=== PATIENT | male | born 1965 | race Caucasian/White ===

== ENCOUNTER → 2017-09-18 | Outpatient (CLI) | payer OTHER ==
--- NOTE | 2017-10-01 00:04 | ONC ---
[place] [address] RADIATION ONCOLOGY NOTE Name: FINN ZAMUDIO Room: [facility]#: [id number] Admission: 09/18/17 Attend Phys: Silviano Naidu MD Discharge: Date of : 61 Report #: [id number] THIS REPORT FOR: //name// CC: Silviano Terrazas DATE OF SERVICE: 09/18/2017 RADIATION ONCOLOGY FOLLOWUP NOTE REFERRING PHYSICIANS: Matt Brown MD; Dr. Suarez; Dr. Hendrix; Dr. Miller as well as iSlviano Orlando MD.; Dr. Anderson Smith, Urology and also Dr. Terrazas. [facility] phone is [phone]. 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 Radiation treatments were completed on 02/07/2016. He also was receiving octreotide from his medical oncologist earlier in 2016. INTERVAL NOTE: The patient indicated that his chromogranin A value may have been falsely elevated because of the amount of antihistamines he had been using. He said that he was having side effects from the octreotide, so it was discontinued. His chromogranin A went from 32 on 06/20/2017 to 242 on 07/22/2017, but then it dropped to 145 on 09/17/2017. Overall, the patient felt like his energy level was improving. He feels reasonably well. The nonproductive cough that he had has decreased in intensity and in frequency. MEDICATIONS: Include amlodipine, carvedilol, aspirin, pantoprazole and 175 mcg of levothyroxine per day. SOCIAL HISTORY: The patient quit smoking around 05/2016. He smoked about a pack a day since about 1984. REVIEW OF SYSTEMS: RESPIRATORY: Breathing was stable. He was not short of breath. GASTROINTESTINAL: He feels like he has a good appetite, though he has had some recent weight loss. PHYSICAL EXAMINATION: VITAL SIGNS: The patient weighed 269.8 pounds [place] [address] RADIATION ONCOLOGY NOTE Name: FINN ZAMUDIO Room: [facility]#: [id number] Admission: 09/18/17 Attend Phys: Silviano Naidu MD Discharge: Date of : 61 Report #: [id number] 09/18/2017. He was 275 pounds on 06/24/2017. On 09/18/2017, blood pressure was 122/84, pulse 66 and respirations 22. LYMPH NODES: He had no palpable cervical or supraclavicular lymphadenopathy. HEART: Had a regular rate and rhythm without murmur. LUNGS: were clear to auscultation. ABDOMEN: Not tender. Spleen was not palpable. Liver was at the costal margin. LABORATORY DATA: From 08/20/2017, hemoglobin was 15.3; platelets 322,000 and white blood cell count 12.5. Sodium 139 and potassium 4.5. BUN 10 and creatinine 0.95. On 09/17/2017, free T4 was 0.7. TSH was still elevated at 12.006 on his present dose of 175 mcg of levothyroxine per day. RADIOLOGIC DATA: From 08/20/2017, there is no evidence of somatostatin receptor positive lesion. Prior right lower lobectomy with ill-defined uptake in the right perihilar area, which is likely post therapeutic. ASSESSMENT AND PLAN: 1. History of atypical carcinoid- There is no clear evidence of atypical carcinoid at this time. The patient is scheduled for additional lab work by his medical oncologist, Dr. Brown on 11/11/2017. He is scheduled to see Dr. Brown on 11/20/2017. He is also seeing his head pumper, Dr. Suarez, on 09/25/2017 and he was asked to schedule a follow up appointment to see me in about 3 months. 2. Hypothyroidism- The patient's TSH was still elevated with him taking 175 mcg of levothyroxine per day. He was given a prescription for 200 mcg of levothyroxine per day and a TSH was ordered in about 3 months and the patient was asked to schedule a follow up appointment to see me afterwards. 3. 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 Smith on 02/17/2018. 4. Aortic ectasia- He follows up with his fly maker, Dr. Miller with regards to his aortic ectasia. The diameter of the asceding aortic ectasia was 4.7 cm on his most recent ct. 5. Insomnia. The patient was given a refill for Restoril for insomnia. Thank you for allowing me to participate in the care of this patient. <ELECTRONICALLY SIGNED> By: Silviano Naidu MD 10/01/17 0004 1227 [id number] Naidu MD /nt
== END ==
LOC: M.RTH 02:42
DX: Z08 Encounter for follow-up examination after completed treatment for malignant neoplasm (principal); I77.819 Aortic ectasia, unspecified site; E03.9 Hypothyroidism, unspecified; G47.00 Insomnia, unspecified; Z87.891 Personal history of nicotine dependence; Z85.118 Personal history of other malignant neoplasm of bronchus and lung; Z85.528 Personal history of other malignant neoplasm of kidney

== ENCOUNTER → 2017-12-18 | Outpatient (CLI) | payer OTHER ==
--- NOTE | 2017-12-29 22:26 | ONC ---
[address] [address] RADIATION ONCOLOGY NOTE Name: FINN ZAMUDIO Room: [facility]#: [id number] Admission: 12/18/17 Attend Phys: Silviano Naidu MD Discharge: Date of : 61 Report #: [id number] THIS REPORT FOR: //name// CC: Silviano Brown MD DATE OF SERVICE: 12/18/2017 REFERRING PHYSICIANS: Dr. Rickey Brown, Dr. Ashlyn Hendrix, Dr. Smith, Dr. Suarez from Pulmonology, Dr. Orlando from Gastroenterology, Dr. Miller from Cardiology, Dr. Doran from Palliative Care. [facility] phone is [phone]. PRIMARY SITE AND HISTOPATHOLOGY: The patient received chemoradiotherapy for a recurrent atypical carcinoid that involved the lung and mediastinal area. Radiation treatments were completed on 02/07/2016. He also was receiving octreotide from his medical oncologist for a part of 2017. INTERVAL NOTE: The patient's main complaint is that he has back pain radiating to his left rib. MEDICATIONS: Include amlodipine, carvedilol, aspirin, pantoprazole and 200 mcg of levothyroxine per day. SOCIAL HISTORY: The patient quit smoking around 05/2016; he smoked about a pack a day since about 1984. REVIEW OF SYSTEMS: RESPIRATORY: Breathing was stable. He was not short of breath. GASTROINTESTINAL: He has a good appetite and is eating a regular diet. PHYSICAL EXAMINATION: VITAL SIGNS: The patient weighed 281.6 pounds on 12/18/2017 and 269.8 pounds on 09/18/2017. On 12/18/2017, blood pressure was 124/100, pulse 96, respirations 20, oxygen saturation 96%. LYMPH NODES: He had no palpable cervical or supraclavicular lymphadenopathy. HEART: Had a regular rate and rhythm without murmur. LUNGS: were clear to auscultation. ABDOMEN: Not tender. Spleen was not palpable. Liver [place] [address] RADIATION ONCOLOGY NOTE Name: FINN ZAMUDIO Room: [facility]#: [id number] Admission: 12/18/17 Attend Phys: Silviano Naidu MD Discharge: Date of : 61 Report #: [id number] LABORATORY DATA: From 12/10/2017, hemoglobin 17, platelets were 258,000 and white blood cell count was 10.6. Sodium was 139, potassium was 4.0, BUN was 20, creatinine was 1.17, AST 17, ALT 60. His TSH has been improving and now is still elevated at 6.34 with him taking 200 mcg of levothyroxine per day. It was at 12 on 09/17/2017. His chromogranin A is 98 with normal being 93 and that was higher in the past, it was 218 on 10/14/2017, so that could have been a response to his octreotide treatments. RADIOLOGIC DATA: The patient had a chest CT on 11/19/2017, which showed no thoracic metastatic disease. There was unchanged right perihilar fibrosis and he also had aortic ectasia, which was unchanged. The patient had a neck CT on 12/10/2018, which showed no abnormal cervical mass or lymphadenopathy. ASSESSMENT AND PLAN: 1. History of atypical carcinoid- There is no clear evidence of atypical carcinoid at this time. He has an appointment with his medical oncologist, Dr. Brown, on 03/25/2018. A thoracic spine MRI was ordered and the patient was asked to schedule a follow up appointment with me after the thoracic spine MRI was completed. 2. Back pain- He does have tenderness over the left lower rib and thoracic spine area. So, a thoracic spine MRI will be ordered and the patient will be asked to schedule a followup appointment to see me afterwards. He already was referred to Palliative Care. This could be arthritic changes that are causing this pain versus possible bone metastasis. 3. Hypothyroidism- The patient's TSH is still elevated, but is slowly going back to normal, so his levothyroxine will be increased from 200 mcg per day to 225 mcg per day, and he was asked to follow up with me after his thoracic spine MRI. 4. History of oncocytoma after partial nephrectomy- The patient has an appointment with his urologist, Dr. Smith, on 02/17/2018 to follow up with regards to this issue. 5. Aortic ectasia- The patient follows up with his explosive technician, Dr. Miller, with regards to this issue. [address] [address] RADIATION ONCOLOGY NOTE Name: FINN ZAMUDIO Room: [facility]#: [id number] Admission: 12/18/17 Attend Phys: Silviano Naidu MD Discharge: Date of : 61 Report #: [id number] Thank you for allowing me to participate in the care of this patient. <ELECTRONICALLY SIGNED> By: Silviano Naidu MD 12/29/17 2226 1228 [id number] Naidu MD /nt
== END ==
LOC: M.RTH 02:28
DX: E03.9 Hypothyroidism, unspecified (principal); I77.819 Aortic ectasia, unspecified site; M54.9 Dorsalgia, unspecified

== ENCOUNTER → 2017-12-20 | Outpatient (CLI) | payer OTHER | LOC: M.MRI 16:36 | DX: M43.8X4 Other specified deforming dorsopathies, thoracic region (principal) ==

== ENCOUNTER → 2018-04-18 | Outpatient (CLI) | payer OTHER ==
[2018-04-18 10:37] LABS: ABSOLUTE EOSINOPHILS 0.3 thou/uL (0.0-0.7); ABSOLUTE LYMPHOCYTES 1.1 thou/uL (0.8-5.3); ABSOLUTE MONOCYTES 0.6 thou/uL (0.0-1.2); ABSOLUTE NEUTROPHILS 6.8 thou/uL (1.6-8.1); BASOPHILS 0.4 %; EOSINOPHILS 3.5 %; HEMATOCRIT 45.9 % (42.0-52.0); HEMOGLOBIN 15.3 gm/dL (14.0-18.0); LYMPHOCYTES 12.4 %; MCH 31.3 pg (26.0-34.0); MCHC 33.3 g/dL (28.0-37.0); MONOCYTES 6.9 %; MPV 8.7 fl. (7.2-11.1); NUCLEATED RBCS 0 /100WBC; PLATELET COUNT* 221 thou/uL (150-400); POLYS 76.8 %; RBC 4.88 mil/uL (4.50-6.00); RDW-CV 13.8 % (10.5-14.5); WBC 8.8 thou/uL (4.0-11.0)
[2018-04-18 10:52] LABS: ALBUMIN 3.7 g/dL (3.4-5.0); CALCIUM 8.5 mg/dL (8.5-10.1); CREATININE 1.3 mg/dL (0.6-1.3); POTASSIUM 4.2 mmol/L (3.5-5.1); TOTAL BILIRUBIN 0.9 mg/dL (<0.1-1.0); TOTAL PROTEIN 7.3 g/dL (6.4-8.2)
== END ==
LOC: M.LAB 10:20 → M.MRI 11:30
PROVIDERS: Radiology Radiation Oncology
DX: E03.9 Hypothyroidism, unspecified (principal); R22.2 Localized swelling, mass and lump, trunk

== ENCOUNTER → 2018-04-23 | Outpatient (CLI) | payer OTHER ==
--- NOTE | 2018-05-06 23:25 | ONC ---
[address] [address] RADIATION ONCOLOGY NOTE Name: FINN ZAMUDIO Room: [facility]#: [id number] Admission: 04/23/18 Attend Phys: Silviano Naidu MD Discharge: Date of : 61 Report #: [id number] THIS REPORT FOR: //name// CC: Silviano Orlando DATE OF SERVICE: 04/23/2018 REFERRING PHYSICIANS: Include Rickey Brown MD; Dr. Miller; Dr. Smith; Ashlyn Hendrix MD; Dr. Orlando from Gastroenterology. [facility] phone is [phone]. PRIMARY SITE AND HISTOPATHOLOGY: The patient received chemoradiotherapy for a recurrent atypical carcinoid involving the lung and mediastinal area. Radiation treatments were completed on 02/07/2016. He also went on to receive octreotide from his Medical Oncologist for a part of 2017 and he has been off of all treatments since that time. INTERVAL NOTE: The patient felt like the radiating pain to his rib is a little bit better. He did not tolerate the MRI of the spine, but wants to retry that again possibly in about a month or 2. MEDICATIONS: Include amlodipine, carvedilol, aspirin, pantoprazole and levothyroxine. SOCIAL HISTORY: The patient quit smoking around 05/2016. He smoked about a pack a day since about 1984. REVIEW OF SYSTEMS: RESPIRATORY: Breathing was stable. He was not short of breath. GASTROINTESTINAL: He has a good appetite. He is eating a regular diet. PHYSICAL EXAMINATION: VITAL SIGNS: The patient weighed 306 pounds on 04/23/2018. He was 281.6 pounds on 12/18/2017. On 04/23/2018, blood pressure was 119/79, pulse 101, respirations 20, oxygen saturation 96%. LYMPH NODES: He had no palpable cervical or supraclavicular lymphadenopathy. HEART: Had a regular rate and rhythm without murmur. LUNGS: were clear to auscultation. ABDOMEN: Not tender, spleen was not palpable. Liver [place] [address] RADIATION ONCOLOGY NOTE Name: FINN ZAMUDIO Room: [facility]#: [id number] Admission: 04/23/18 Attend Phys: Silviano Naidu MD Discharge: Date of : 61 Report #: [id number] LABORATORY DATA: From 04/2018: Sodium 139, potassium 4.2, BUN 18, creatinine 1.3. White blood count 8.8, hemoglobin 15.3, platelets were 221,000. TSH was slightly elevated at 5.633 on his present dose of levothyroxine. He also had a scan on 02/19/2018. It was a PET CT and there was no evidence of active disease. ASSESSMENT AND PLAN: 1. He has history of atypical carcinoid- There is no evidence of active disease at this time. He has an appointment with his medical oncologist, Dr. Brown, on 07/04/2018. He was asked to schedule a follow up appointment with me around end of 05/2018. 2. Back pain- probably due to degenerative joint disease. He was going to try the thoracic spine MRI again sometime around May or 06/2018. He was asked to schedule a Follow up appointment with me afterwards. 3. Hypothyroidism- The patient's levothyroxine was increased from 225 micrograms per day 250 micrograms per day and a basic metabolic panel, TSH will be ordered around 05/2018 or 06/2018. He was asked to schedule a followup appointment to see me afterwards. 4. History of oncocytoma after partial nephrectom- The patient follows up with his urologist, Dr. Smith, for this issue. 5. Aortic ectasia- The patient follows up with his job press operator, Dr. Miller, with regards to this issue. Thank you for allowing me to participate in the care of this patient. <ELECTRONICALLY SIGNED> By: Silviano Naidu MD 05/06/18 2325 1255 [id number] Naidu MD /nt
== END ==
LOC: M.RTH 04-04 09:30
DX: Z09 Encounter for follow-up examination after completed treatment for conditions other than malignant neoplasm (principal); E03.9 Hypothyroidism, unspecified; I77.819 Aortic ectasia, unspecified site; M54.5 Low back pain

== ENCOUNTER → 2018-06-18 | Outpatient (CLI) | payer OTHER ==
[2018-06-18 10:19] LABS: CALCIUM 8.9 mg/dL (8.5-10.1); CREATININE 1.2 mg/dL (0.6-1.3); POTASSIUM 3.9 mmol/L (3.5-5.1)
== END ==
LOC: M.LAB 04-24 13:37
PROVIDERS: Radiology Radiation Oncology
DX: S22.068A Other fracture of T7-T8 thoracic vertebra, initial encounter for closed fracture (principal); M54.5 Low back pain; X58.XXXA Exposure to other specified factors, initial encounter; Y93.9 Activity, unspecified; Y92.89 Other specified places as the place of occurrence of the external cause; Y99.8 Other external cause status; Z86.012 Personal history of benign carcinoid tumor

== ENCOUNTER → 2018-07-02 | Outpatient (CLI) | payer OTHER ==
--- NOTE | 2018-07-12 13:17 | ONC ---
[address] [address] RADIATION ONCOLOGY NOTE Name: FINN ZAMUDIO Room: [facility]#: [id number] Admission: 07/02/18 Attend Phys: Silviano Naidu MD Discharge: Date of : 61 Report #: [id number] THIS REPORT FOR: //name// CC: Silviano Orlando DATE OF SERVICE: 07/02/2018 [facility] phone is [phone]. REFERRING PHYSICIANS: Include Dr. Riceky Brown, Dr. Miller, Dr. Smith, Dr. Orlando, Dr. Ashlyn Hendrix. PRIMARY SITE AND HISTOPATHOLOGY: The patient received chemoradiotherapy for a recurrent atypical carcinoid involving the lung and mediastinal area. Radiation treatments were completed on 02/07/2016. He went on to receive octreotide from his medical oncologist for part of 2017. He has been off all treatment since that time. INTERVAL NOTE: The patient had radiating pain to his right rib and he takes Percocet as needed. He averages about 3-5 a day and he said that Dr. Brown prescribes that for him. He had an MRI of the spine, which revealed what appeared to be a stable chronic compression fracture of the 8th thoracic vertebral body. The patient had been coughing up yellow sputum recently. MEDICATIONS: Amlodipine, carvedilol, pantoprazole, Aspirin, 275 mcg of levothyroxine per day, and he takes about 3 to5 Percocet a day. SOCIAL HISTORY: The patient quit smoking around 05/2016. He smoked about a pack a day since about 1984. REVIEW OF SYSTEMS: RESPIRATORY: Breathing was stable. He was not short of breath. GASTROINTESTINAL: He has a good appetite. He is eating a regular diet. PHYSICAL EXAMINATION: VITAL SIGNS: The patient weighed 306.6 pounds on 07/02/2018. He was 306 pounds on 04/23/2018. On 07/02/2018, his blood pressure was 129/94, pulse 95, respirations 22, oxygen saturation 97%. LYMPH NODES: He had no palpable cervical or supraclavicular lymphadenopathy. HEART: Had a regular rate and rhythm without murmur. LUNGS: were clear to auscultation. ABDOMEN: Not tender. Spleen was not palpable. Liver [place] [address] RADIATION ONCOLOGY NOTE Name: FINN ZAMUDIO [place] Room: [facility]#: [id number] Admission: 07/02/18 Attend Phys: Silviano Naidu MD Discharge: Date of : 61 Report #: [id number] LABORATORY DATA: From 06/27/2018, hemoglobin was 16.0, white blood cell count was 13.9, platelets were 286,000. Sodium was 136, potassium 4.1, BUN 18, creatinine 1.4, AST 22, ALT 13, alkaline phosphatase 59. TSH was elevated at 8.89 with a free T4 of 0.8 and at that time his levothyroxine was increased from 250 mcg a day to 275 mcg a day. Chromogranin A level was 210 on 06/27/2018 and it was 43 on 03/18/2018. RADIOLOGIC DATA: The patient had an MRI of the thoracic spine on 06/18/2018 which revealed stable mild compression of the 8th thoracic vertebral body with inferior endplate edema and mild contrast enhancement, there appears to be a Schmorl's node deformity. The patient also had a neuroendocrine PET scan on 02/19/2018 and on 02/19/2018 that showed no evidence of metastatic disease and post-therapeutic changes in the lung. ASSESSMENT AND PLAN: 1. History of atypical carcinoid- The patient's chromogranin A level was elevated. That could be elevated for other reasons besides carcinoid. The patient is seeing his medical oncologist, Dr. Brown, on 07/04/2018. It also appears he may have a renal function scan scheduled on 08/18/2019. Dr. Brown will probably decide between observation (with possible further imaging) or systemic therapy based on the chromogranin A elevation. I will go ahead and write an order for a repeat chromogranin A in 6 weeks, and he was asked to schedule a follow up appointment to see me afterwards. 2. Possible upper respiratory tract infection - the patient has been coughing up yellow sputum and has an elevated white blood cell count, so a prescription was written for azithromycin. 3. Back pain- could be due to the slight compression deformity of the 8th thoracic vertebral bodies, so he will be referred to the oncology rehabilitation physician, Dr. Alexandra to assess and manage that issue further. The patient takes Percocet as needed for pain and that is prescribed to him by Dr. Brown. 4. Hypothyroidism- The patient's TSH was elevated with him taking 250 mcg of levothyroxine per day, so that was increased to 275 mcg/per day. 5. 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 The patient follows up with his urologist, Dr. Smith, and he has an appointment with Dr. Smith on 08/18/2018 and may have a renal function scan at that time. 6. Aortic ectasia- The patient follows up with his electrical contractor, Dr. Miller, with regard [place] [address] RADIATION ONCOLOGY NOTE Name: FINN ZAMUDIO Room: [facility]#: [id number] Admission: 07/02/18 Attend Phys: Silviano Naidu MD Discharge: Date of : 61 Report #: [id number] Thank you for allowing me to participate in the care of this patient. <ELECTRONICALLY SIGNED> By: Silviano Naidu MD 07/12/18 1317 1204 [id number] Naidu MD /nt
== END ==
LOC: M.RTH 06-20 09:30
DX: Z08 Encounter for follow-up examination after completed treatment for malignant neoplasm (principal); E03.9 Hypothyroidism, unspecified; M54.5 Low back pain; I77.819 Aortic ectasia, unspecified site; Z85.118 Personal history of other malignant neoplasm of bronchus and lung; Z85.831 Personal history of malignant neoplasm of soft tissue

== ENCOUNTER → 2018-08-13 | Outpatient (CLI) | payer OTHER ==
--- NOTE | ~2018-08-13 | ONC ---
[address] [address] RADIATION ONCOLOGY NOTE Name: FINN ZAMUDIO Room: [facility]#: [id number] Admission: 08/13/18 Attend Phys: Silviano Naidu MD Discharge: Date of : 61 Report #: [id number] THIS REPORT FOR: //name// CC: Silviano Hendrix DATE OF SERVICE: 08/13/2018 REFERRING PHYSICIANS: Include Dr. Hendrix, Dr. Smith, Dr. Miller, Dr. Brown and Dr. Givens. [facility] phone is [phone]. PRIMARY SITE AND HISTOPATHOLOGY: The patient received chemoradiotherapy for recurrent atypical carcinoid that involved the lung and mediastinal area. The radiation treatments were completed on 02/07/2016. He went on to receive octreotide from his Medical Oncology for part of 2016. He has been off of all treatment since that time. INTERVAL NOTE: He feels tired and has significant fatigue, and he continues to have radiating pain to the right chest wall. MEDICATIONS: Amlodipine, carvedilol, pantoprazole, aspirin. He was taking 275 mcg of levothyroxine per day and that has been increased yesterday to 300 mcg per day. He takes about 3-5 Percocet a day for his pain. SOCIAL HISTORY: The patient quit smoking around 05/2016. He smoked about a pack a day since about 1984. REVIEW OF SYSTEMS: RESPIRATORY: Breathing was stable. He was not short of breath. GASTROINTESTINAL: He has a good appetite. He is eating a regular diet. PHYSICAL EXAMINATION: VITAL SIGNS: The patient weighed 308.6 pounds on 08/13/2018 and weighed 306.6 pounds on 07/02/2018, and on 08/13/2018 blood pressure is 115/96, pulse 104, respirations 20, oxygen saturation was 100%. LYMPH NODES: The patient had no palpable cervical or supraclavicular lymphadenopathy. HEART: Had a regular rate and rhythm without murmur. LUNGS: Clear to auscultation. ABDOMEN: Nontender. Spleen was not palpable. Liver was at the costal margin. LABORATORY DATA: From 08/08/2018, sodium was 140, potassium 4.5, BUN 19, creatinine 1.33. TSH was elevated at 14.06 and his previous TSH on 06/18/2018 was 8.98. White blood cell count was 9.5, hemoglobin 15, platelets are 332,000. [place] [address] RADIATION ONCOLOGY NOTE Name: FINN ZAMUDIO Room: [facility]#: [id number] Admission: 08/13/18 Attend Phys: Silviano Naidu MD Discharge: Date of : 61 Report #: [id number] His chromogranin A has actually gone down and it was 120 on 08/08/2018, was 210 on 06/27/2018. RADIOLOGIC DATA: He had a PET/CT scan on 02/19/2018 and that showed no evidence of dotatate avid metastatic disease; this is a neuroendocrine PET scan, and just post-therapeutic changes. ASSESSMENT AND PLAN: 1. History of atypical carcinoid. The patient's chromogranin A level is going down, so there is no clear evidence of disease at this point. The patient is scheduled to see his medical oncologist, Dr. Brown, on 10/02/2018. I ordered lab work and a chest x-ray in about 3 months and asked the patient to follow up with me afterwards. 2. Hypothyroidism. The patient's TSH keeps rising even though he has been increasing his level of daily levothyroxine. His TSH was higher than previously and the previous level in June, so his levothyroxine was increased from 275 mcg to 300 mcg. A TSH will be ordered in 3 months. The patient will be asked to schedule a followup appointment to see me afterwards. But since his TSH was rising in spite of him taking higher and higher levels of levothyroxine, he will be referred to the roll grinder operator at [facility]. I have referred the patient to Dr. Rosales or colleagues to help manage this issue. 3. 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 The patient follows up with his urologist, Dr. Smith, and has an appointment with Dr. Smith on 08/18/2018. 4. Right chest wall pain that is chronic. It could be from his T8 compression fractures. He will be sent to the Oncology Rehabilitation physician, Dr. Alexandra, to manage this issue. 5. Aortic ectasia. The patient follows up with his marker maker, Dr. Miller, with regards to that issue. Thank you for allowing me to participate in the care of this patient. By: 1120 [id number] Naidu MD /les
== END ==
LOC: M.RTH 06:05
DX: E03.9 Hypothyroidism, unspecified (principal); I77.810 Thoracic aortic ectasia; Z86.012 Personal history of benign carcinoid tumor

== ENCOUNTER → 2018-11-28 | Outpatient (CLI) | payer OTHER ==
--- NOTE | ~2018-11-28 | ONC ---
[address] [address] RADIATION ONCOLOGY NOTE Name: FINN ZAMUDIO Room: [facility]#: [id number] Admission: 11/28/18 Attend Phys: Silviano Naidu MD Discharge: Date of : 61 Report #: [id number] THIS REPORT FOR: //name// CC: Silviano Naidu Ashlyn Alfonsos DATE OF SERVICE: 11/28/2018 [facility] phone is [phone]. REFERRING PHYSICIANS: Dr. Matt Brown, Dr. Miller, Dr. Smith and Dr. Givens. 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 The radiation treatments were completed on 02/07/2016. He went on to receive octreotide from his medical oncologist for part of 2017. He has been off of all treatment since that time. INTERVAL NOTE: The patient actually feels reasonably well. He has a good appetite. He has had chronic issues with the radiating pain around the chest wall area. It sounds if he eats something "it makes him gassy," he can get little bit short of breath. The patient has a known chronic compression fracture of the 8th thoracic vertebral body, which may be causing this chronic issue. Overall, energy level is reasonable for him. MEDICATIONS: Include amlodipine, carvedilol, pantoprazole, aspirin, 300 mcg of levothyroxine per day. He also had taken Percocet for his radiating pain. SOCIAL HISTORY: The patient quit smoking around 05/2016. He smoked about a pack a day since about 1984. REVIEW OF SYSTEMS: RESPIRATORY: Breathing was stable. He was not short of breath during his appointment, though he indicated when he eats foods that make him somewhat gassy, that he can become short of breath. GASTROINTESTINAL: He has good appetite, eats a regular diet. PHYSICAL EXAMINATION: VITAL SIGNS: The patient weighed 312.6 pounds on 11/28/2018 and 308.6 pounds on 08/13/2018. On 11/28/2018, blood pressure was 118/90, pulse 102, oxygen saturation 92%, respirations 24. LYMPH NODES: He had no palpable cervical or supraclavicular lymphadenopathy. HEART: Had a regular rate and rhythm without murmur. LUNGS: Clear to auscultation. ABDOMEN: Not tender, spleen was not palpable. Liver was [place] [address] RADIATION ONCOLOGY NOTE Name: FINN ZAMUDIO Room: [facility]#: [id number] Admission: 11/28/18 Attend Phys: Silviano Naidu MD Discharge: Date of : 61 Report #: [id number] LABORATORY DATA: From 11/21/2018, hemoglobin 16.0, platelets 251,000, white blood cells 9.4. Sodium was 136, potassium 3.9, BUN was 15, creatinine was 1.02 and TSH was 3.33 which was within normal limits on his present dose of 300 mcg of levothyroxine per day. His chromogranin A was elevated at 353. It was 222 on 09/26/2018 and it was 120 on 08/08/2018. RADIOLOGIC DATA: He had a PET/CT scan on 10/13/2018, which showed stable post-therapeutic changes in the right lung without recurrent somatostatin receptor positive mass or metastatic disease. He did have some signs consistent with sinusitis. ASSESSMENT AND PLAN: 1. History of atypical carcinoid. The patient's chromogranin A is rising. There is no radiographic evidence of recurrent cancer based on his 10/13/2018 neuroendocrine PET scan. He is scheduled to see his medical oncologist, Dr. Brown on 01/01/2019. He is scheduled for another chromogranin A prior to that appointment. He was treated with octreotide in the past, so that may be an option if there is a continued rise in chromogranin A. The patient had some side effects at that time when he was taking octreotide, part of that could have been from him being hypothyroid rather than the octreotide treatment. So, he will decide with the medical oncologist concerning future management after the lab work in December and after he sees his medical oncologist on 01/01/2019. There is no clear radiographic evidence of recurrent disease in spite of the rising chromogranin A. He was given a requisition for a comprehensive metabolic panel, complete blood count and chromogranin A in March and he is asked to follow up with me afterwards, but again he is seeing his medical oncologist in 12/2018 for chromogranin A and followup appointment. 2. Hypothyroidism. The patient's TSH is within normal limits on his present dose of 300 mcg of levothyroxine per day, so he was given a refill for 300 mcg of levothyroxine per day and he requisition was written for TSH in 03/2019. He is asked to follow up with me afterwards. 3. 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 The patient follows up with his urologist, Dr. Smith. He has an appointment with Dr. Smith in 08/18/2019. 4. Chronic chest wall pain. It could be from his chronic compression fracture of the 8th thoracic vertebral body. Presently, he takes Percocet as needed for that issue. 5. Aortic ectasia. The patient follows up with his soil specialist, Dr. Miller with regard to that issue. 6. Gastroesophageal reflux disease -- the patient was given a refill for pantoprazole and that may be also other causes of [place] [address] RADIATION ONCOLOGY NOTE Name: FINN ZAMUDIO Room: [facility]#: [id number] Admission: 11/28/18 Attend Phys: Silviano Naidu MD Discharge: Date of : 61 Report #: [id number] Thank you for allowing me to participate in the care of this patient. By: [id number] Naidu MD /nt
== END ==
LOC: M.RTH 11-14 09:30
DX: Z08 Encounter for follow-up examination after completed treatment for malignant neoplasm (principal); E03.9 Hypothyroidism, unspecified; I77.810 Thoracic aortic ectasia; R07.89 Other chest pain; K21.9 Gastro-esophageal reflux disease without esophagitis; Z85.110 Personal history of malignant carcinoid tumor of bronchus and lung; Z85.528 Personal history of other malignant neoplasm of kidney

== ENCOUNTER → 2019-05-22 | Outpatient (CLI) | payer OTHER ==
--- NOTE | ~2019-05-22 | ONC ---
[address] [address] RADIATION ONCOLOGY NOTE Name: ROBBKARINALIZANDRO Terry Room: [facility]#: [id number] Admission: 05/22/19 Attend Phys: Silviano Naidu MD Discharge: Date of : 61 Report #: [id number] THIS REPORT FOR: //name// CC: Silviano Goldberg Ruma DATE OF SERVICE: 05/22/2019 RADIATION ONCOLOGY FOLLOWUP NOTE REFERRING PHYSICIANS: Include Rickey Brown MD., Dr. Miller, Dr. Givens, Dr. Smith, Dr. Ofelia Rosales. [facility] phone is [phone]. 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 The radiation treatments were completed on 02/07/2016. He went on to receive octreotide from his medical oncologist for part of 2017, but did not tolerate that too well, so he has been off all treatment since about that time. INTERVAL NOTE: The patient indicated he was hospitalized because of diarrhea and then he was discharged. He saw his medical oncologist, Dr. Brown on 04/16/2019 and he felt that he was hospitalized because of a carcinoid crisis. The patient recuperated from that. He indicated he was contemplating possibly trying octreotide or interferon in the future since the patient does have an elevated chromogranin A though no obvious radiologic evidence of recurrence. Also, his chest wall pain which could be due to disk compression of T8, is being now managed with Percocet, and he continues to follow up with Dr. Smith. He had an oncocytoma resected, now he has a complex cyst involving the left kidney. MEDICATIONS: Include amlodipine, carvedilol, pantoprazole, aspirin, 300 mcg of levothyroxine per day and Percocet for radiating pain. SOCIAL HISTORY: The patient quit smoking cigarettes around 05/2016. He smoked about a pack a day since about 1984. REVIEW OF SYSTEMS: RESPIRATORY: Breathing was stable. The patient was not short of breath during his appointment. GASTROINTESTINAL: He has a good appetite, eats regular diet. PHYSICAL EXAMINATION: VITAL SIGNS: The patient weighed 309.6 pounds on 05/22/2019. He was 312.6 pounds on 11/28/2018 and on 05/22/2019, blood pressure was 107/88, pulse 84, oxygen saturation was 97%, respirations 24[place] [address] RADIATION ONCOLOGY NOTE Name: FINN ZAMUDIO Room: [facility]#: [id number] Admission: 05/22/19 Attend Phys: Silviano Naidu MD Discharge: Date of : 61 Report #: [id number] LYMPH NODES: The patient had no palpable cervical or supraclavicular lymphadenopathy. HEART: Had a regular rate and rhythm without murmur. LUNGS: Clear to auscultation. ABDOMEN: Nontender. Spleen was not palpable. Liver was at the costal margin. LABORATORY DATA: From 04/13/2019, hemoglobin was 14.7, platelets were 271,000, white blood cell count was 10.7. Sodium was 141, potassium 4.3, BUN 14, creatinine 1.04. His chromogranin A was elevated at 267, normal being less than 93. Previously it was 103 on 03/20/2019 and was as high as 353 on 11/21/2018. RADIOLOGIC DATA: The patient had abdominal CT scan on 01/23/2019 and that shows a stable non-enhancing left renal cyst and he also had a chest CT on 01/14/2019 and as well as abdominal pelvic CT and that showed no thoracic metastatic disease. ASSESSMENT AND PLAN: 1. History of atypical carcinoid. The patient continues to have an elevated chromogranin A with no radiologic evidence of recurrent carcinoid syndrome. Dr. Brown is contemplating eventually starting the patient on octreotide or interferon and right now the patient is scheduled to see his medical oncologist, Dr. Brown on 06/09/2019. He is scheduled for lab work prior to that time. The patient was asked to schedule a followup appointment to see me in about 3-4 months. 2. Hypothyroidism. The patient's TSH was slightly elevated on 03/20/2019 at 5.10 with normal being 5, so he seems to be doing reasonably well with taking 300 mcg of levothyroxine per day, so that was refilled for him. He has an appointment with an looping machine operator, Dr. Rosales on 07/10/2019. The TSH was ordered some around 08/2019. The patient was asked to schedule a followup appointment to see me afterwards. 3. 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 There was a partial right nephrectomy. The patient now was found to have a complex cyst of the left kidney so he is scheduled for an ultrasound of the left kidney on 07/27/2019 and he is scheduled to see his urologist, Dr. Smith on 07/27/2019 as well. 4. Chronic chest wall pain could be from his chronic compression fracture of the 8th thoracic vertebral body and he takes Percocet to help control that pain that is managed by his medical oncologist. Thank you for allowing me to participate in the care of this patient. By: [id number] jayleen Cuevas
== END ==
LOC: M.RTH 04:55
DX: Z08 Encounter for follow-up examination after completed treatment for malignant neoplasm (principal); N28.1 Cyst of kidney, acquired; E03.9 Hypothyroidism, unspecified; Z79.899 Other long term (current) drug therapy; Z79.82 Long term (current) use of aspirin; Z85.520 Personal history of malignant carcinoid tumor of kidney; Z90.5 Acquired absence of kidney

== ENCOUNTER → 2020-09-30 | Outpatient (CLI) | payer OTHER ==
--- NOTE | 2020-10-02 23:58 | CON ---
[address] [address] CONSULTATION Name: FINN ZAMUDIO Room: [facility]#: [id number] Admission: 09/30/20 Attend Phys: Silviano Naidu MD Discharge: Date of : 61 Report #: [id number] THIS REPORT FOR: cc: Adi Villafana MD, Matthew W. MD ~ Silviano Naidu MD DATE OF CONSULTATION: 09/30/2020 Cc: Rickey Cook REFERRING PHYSICIANS: Dr. Rickey Brown, Dr. Miller, Dr. Givens, Dr. Smith, Dr. Rosales, Dr. Ashlyn Hendrix, Dr. Adi Villafana, Dr. Cruz from Pain Management, Dr. Cook. PRIMARY SITE AND HISTOPATHOLOGY: The patient has metastatic carcinoid tumor. HISTORY OF PRESENT ILLNESS: The patient received chemotherapy and radiation therapy for recurrent atypical carcinoid that involved the mediastinal and lung areas. The patient received radiation treatments from 12/26/2015-02/07/2016. The patient was prescribed a total of 6000 cGy to the affected lung area in 200 cGy daily fractions with 6 MV photons as per the [facility] treatment plan. The patient also went on to receive octreotide from his medical oncologist for part of 2016, but he did not tolerate that too well, so that was discontinued and he then was having worsening left flank pain, and he was found to have a metastatic focus in the left rib and that was biopsied at the [facility] on 06/24/2020 and that revealed metastatic atypical carcinoid involving the rib. He is taking 30 mg of oxycodone every 3 hours as needed for pain. He says he averages about 8 pills a day and he also has been prescribed 25 mg of desipramine as well, and he presents for consideration for stereotactic body radiation therapy. He saw his medical oncologist, Dr. Brown yesterday and does not appear that any systemic therapy will be performed at this time.He presents for possible radiation therapy. PAST MEDICAL HISTORY AND PAST SURGICAL HISTORY: Includes hypertension, [place] [address] CONSULTATION Name: FINN ZAMUDIO Room: [facility]#: [id number] Admission: 09/30/20 Attend Phys: Silviano Naidu MD Discharge: Date of : 61 Report #: [id number] of heart disease, history of empyema in 1983. He was treated for nephrolithiasis in 2007. He had a bicuspid aortic valve replacement in 2007. He also had a partial nephrectomy on 02/19/2014 for an oncocytoma. MEDICATIONS: Include Tylenol as needed, amlodipine and desipramine 25 mg per day and 300 mcg of levothyroxine per day and 40 mg of pantoprazole, 6.25 mg of carvedilol, 10 mg of amlodipine and also he takes the 30 mg of oxycodone every 3 hours as needed for pain. ALLERGIES: HE DOES STATE THAT HE DOES NOT TOLERATE THE OCTREOTIDE TOO WELL. FAMILY HISTORY: Mother had lung cancer. Father had pancreatic cancer. Maternal uncle had lung cancer. SOCIAL HISTORY: The patient is disabled. He is . He has 1 son and 2 daughters. Ethanol: in the past, he drank beer occasionally. Cigarettes, he smoked about 1 pack of cigarettes per day for about 30 years. He quit smoking around 2015. REVIEW OF SYSTEMS: GENERAL: The patient denied having fevers or chills. SKIN: The patient denied having color changes or itching. LYMPH NODES: The patient denied having enlarged or painful glands in the neck. ENDOCRINE: The patient denied having any hot or cold intolerance. HEMATOLOGY AND IMMUNOLOGY: The patient denied having any anemia. MUSCULOSKELETAL: The patient denied having any arthritis. HEAD AND NECK: The patient denied having any headaches, migraines. RESPIRATORY: The patient denied having any shortness of breath. CARDIOVASCULAR: The patient denied having any palpitations. GASTROINTESTINAL: The patient denied having nausea or vomiting. NEUROLOGIC: The patient does have pain around the left flank area. LABORATORY DATA: From the [facility] on 09/23/2020: Hemoglobin of 14.6, platelets 240,000, white blood cells were 7.9. Sodium 138, potassium 4.2, BUN 17, creatinine 1.19, alkaline phosphatase was 53. His chromogranin A was elevated at 166 on 09/23/2020, it was as low as 44 on 06/23/2020 and it was as high as 324 on 10/19/2019. He had a neuroendocrine PET scan on 07/24/2021, which revealed uptake in the left seventh rib in the area of biopsy proven atypical carcinoid. He also had an MRI of the sacrococcygeal area, which revealed a 0.6 cm geographic marrow lesion in the left sacrum just above the 2nd sacral foramen. 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 PHYSICAL EXAMINATION: [place] [address] CONSULTATION Name: FINN ZAMUDIO Room: [facility]#: [id number] Admission: 09/30/20 Attend Phys: Silviano Naidu MD Discharge: Date of : 61 Report #: [id number] VITAL SIGNS: The patient's height is 5 feet 10 inches, weight 301.8 pounds, blood pressure 142/84, temperature 98.6 degrees Fahrenheit, pulse 98, oxygen saturation 95%, respirations 24. LYMPH NODES: He had no cervical, supraclavicular lymphadenopathy. EYES: Pupils WEre equal and round, reactIVE to light and accommodation. Extraocular movement was intact. MOUTH: Had no visible lesions. HEART: Had a regular rate and rhythm without murmur. LUNGS: were clear to auscultation. CHEST: Left ribs was tender to palpation. Right rib: was not tender to palpation. EXTREMITIES: Had no clubbing, cyanosis or edema. NEUROLOGIC: Cranial nerves 2-12 are intact. Sensation was intact. He had 4/5 strength in his extremities and his ambulation was intact. ASSESSMENT AND PLAN: The patient has metastatic atypical carcinoid with symptomatic involvement of the left rib. The patient was offered stereotactic body radiation therapy to that area. The efficacy of stereotactic body radiation therapy can be found in the article with the title," Inoperable Pulmonary Carcinoid Tumors: Local Control Rates With Stereotactic Body Radiotherapy With Image-Guided Radiotherapy." In that study from the [facility], they had 10 patients who were treated for 12 pulmonary carcinoid lesions. They received 5-10 fractions of stereotactic body radiation therapy and out of those 10 patients, two patients had disease progression in the mediastinal lymph nodes, but all the other ones seemed to have controlled disease that in the treated area. In the study with the title, "Oligometastases Treated With Stereotactic Body Radiotherapy: Long-Term Follow-Up of Perspective Study" with Dr. Huizar being one of the authors; they found that the local control rates were about 87% and they treated 121 patients in that study with 5 or fewer detectable metastases. So, the risks, benefits, logistics of stereotactic body radiation therapy for rib metastases were described to the patient in detail. He gave his witnessed, informed consent to proceed with radiation therapy. Orders will be written to schedule him for simulation. Right now, the left rib lesion will be set up for treatmemnt and then he will probably be reassessed and consideration could be given to treating the sacral lesion in a similar manner. <ELECTRONICALLY SIGNED> By: Silviano Naidu MD 10/02/20 [id number] Naidu MD /nt
== END ==
LOC: M.RTH 13:00
PROVIDERS: ATTEND Radiology Radiation Oncology
DX: C79.51 Secondary malignant neoplasm of bone (principal); Z92.21 Personal history of antineoplastic chemotherapy